=== PATIENT | female | born 1965 | race Caucasian/White ===

== ENCOUNTER → 2024-09-10 10:00 | Outpatient (REF) | payer OTHER, SELFPAY | LOC: RCS 10:00 | PROVIDERS: ATTENDING PHYSICIAN Internal Medicine Hematology & Oncology; FAMILY PHYSICIAN Family Medicine | DX: C50.912 Malignant neoplasm of unspecified site of left female breast (principal); Z17.0 Estrogen receptor positive status [ER+]; D70.1 Agranulocytosis secondary to cancer chemotherapy; Z51.11 Encounter for antineoplastic chemotherapy; D53.9 Nutritional anemia, unspecified; C79.51 Secondary malignant neoplasm of bone; C78.7 Secondary malignant neoplasm of liver and intrahepatic bile duct | CPT/HCPCS: 93306; 93356 ==

== ENCOUNTER → 2024-09-12 08:20 | Outpatient (REF) | payer OTHER, SELFPAY | LOC: RAD 08:20 | PROVIDERS: ATTENDING PHYSICIAN Internal Medicine Hematology & Oncology; FAMILY PHYSICIAN Family Medicine | DX: C50.912 Malignant neoplasm of unspecified site of left female breast (principal) | CPT/HCPCS: 71260; 74177; 78306; 93005; A9503; Q9967 ==

== ENCOUNTER → 2024-11-13 07:54 | Outpatient (REF) | payer OTHER, SELFPAY | LOC: RAD 07:54 | PROVIDERS: ATTENDING PHYSICIAN Internal Medicine Hematology & Oncology; FAMILY PHYSICIAN Family Medicine | DX: C50.912 Malignant neoplasm of unspecified site of left female breast (principal) | CPT/HCPCS: 71260; 74177; 78306; A9503; Q9967 ==

== ENCOUNTER → 2025-01-08 07:34 | Outpatient (REF) | payer OTHER, SELFPAY | LOC: RAD 07:34 | PROVIDERS: ATTENDING PHYSICIAN Internal Medicine Hematology & Oncology; FAMILY PHYSICIAN Family Medicine | DX: C50.912 Malignant neoplasm of unspecified site of left female breast (principal) | CPT/HCPCS: 71260; 74177; Q9967 ==

== ENCOUNTER → 2025-02-14 08:02 | Outpatient (REF) | payer BC, SELFPAY | LOC: MRI 08:02 | PROVIDERS: ATTENDING PHYSICIAN Internal Medicine Hematology & Oncology; FAMILY PHYSICIAN Family Medicine | DX: C50.912 Malignant neoplasm of unspecified site of left female breast (principal); Z17.0 Estrogen receptor positive status [ER+]; D70.1 Agranulocytosis secondary to cancer chemotherapy; Z51.11 Encounter for antineoplastic chemotherapy; D53.9 Nutritional anemia, unspecified; C79.51 Secondary malignant neoplasm of bone; C78.7 Secondary malignant neoplasm of liver and intrahepatic bile duct | CPT/HCPCS: 74183; A9575 ==